=== PATIENT | male | born 1970 | race Caucasian/White ===

== ENCOUNTER → 2021-06-20 | Outpatient (CLI) | payer BC ==
[~2021-06-20] MED LIST: AMLODIPINE BESYL5 MG PO; FENOFIBRATE54 MG PO; GABAPENTIN600 MG PO; HYDROCHLOROTHIA25 MG PO; IRBESARTAN300 MG PO; MELOXICAM15 MG PO; METFORMIN HCL500 MG PO; OMEPRAZOLE40 MG PO; PREDNISONE 10 M10 MG PO; TESTOSTERO200 MG/1 M IM; TIZANIDINE HCL4 MG PO; TRIAMCINOLONE
[2021-06-20 10:49] LABS: HEMOGLOBIN 16.5 gm/dl (14.0-17.5); RED BLOOD COUNT 6.01 M/UL (4.20-5.50); WHITE BLOOD COUNT 7.9 K/UL (4.5-11.0)
[2021-06-20 11:07] LABS: BUN/CREATININE RATIO 12 (0-10)
== END ==
LOC: OPSV2 09:28
PROVIDERS: Orthopaedic Surgery
DX: Z01.812 Encounter for preprocedural laboratory examination (principal); G56.01 Carpal tunnel syndrome, right upper limb
CPT/HCPCS: 36415; 80048; 85025

== ENCOUNTER → 2021-06-30 | Day surgery (SDC) | payer BC ==
[~2021-06-30] VITALS: Ht 188 cm; Wt 127.5 kg
[~2021-06-30] MED LIST changes: +HYDROCODON-ACE1 EAC4 PO
== END | disposition home or self-care (01) ==
LOC: OR 06-23 09:15
DX: G56.01 Carpal tunnel syndrome, right upper limb (principal); I10 Essential (primary) hypertension; K21.9 Gastro-esophageal reflux disease without esophagitis; M19.90 Unspecified osteoarthritis, unspecified site; E78.5 Hyperlipidemia, unspecified; E11.42 Type 2 diabetes mellitus with diabetic polyneuropathy; F17.200 Nicotine dependence, unspecified, uncomplicated; Z79.2 Long term (current) use of antibiotics; Z79.84 Long term (current) use of oral hypoglycemic drugs; Z79.899 Other long term (current) drug therapy; Z80.1 Family history of malignant neoplasm of trachea, bronchus and lung; Z82.49 Family history of ischemic heart disease and other diseases of the circulatory system
CPT/HCPCS: 82962; J1100; J1885; J2001; J2250; J2405; J2704; J3010; J7030; J7120

== ENCOUNTER → 2021-08-09 | Outpatient (CLI) | payer BC ==
[~2021-08-09] MED LIST changes: +CETIRIZINE HCL10 MG PO; +COREG6.25 MG PO; +CYCLOBENZAPRINE10 MG PO; +MAGNESIUM PO; +VITAMIN C PO; +VITAMIN D PO; +ZINC PO
[2021-08-09 08:57] LABS: HEMOGLOBIN 15.1 gm/dl (14.0-17.5); RED BLOOD COUNT 5.83 M/UL (4.20-5.50); WHITE BLOOD COUNT 6.6 K/UL (4.5-11.0)
[2021-08-09 09:16] LABS: BUN/CREATININE RATIO 17 (0-10)
[2021-08-10 09:13] LABS: FSH 14.2 mIU/mL (1.5-12.4); LUTEINIZING HORMONE(LH) 12.9 mIU/mL (1.7-8.6); PROLACTIN 9.1 ng/mL (4.0-15.2)
== END ==
LOC: OPSV2 07:47
PROVIDERS: Anesthesiology; Physician Assistant Surgical
DX: Z01.812 Encounter for preprocedural laboratory examination (principal); R53.83 Other fatigue
CPT/HCPCS: 36415; 80048; 83001; 83002; 84146; 84402; 84403; 85025

== ENCOUNTER → 2021-08-17 | Outpatient (CLI) | payer BC ==
[2021-08-18 04:08] LABS: TESTOSTERONE, SERUM 20 ng/dL (264-916)
== END ==
LOC: LAB 09:16
PROVIDERS: Physician Assistant Surgical
DX: R53.83 Other fatigue (principal)
CPT/HCPCS: 36415; 84403

== ENCOUNTER → 2021-08-18 | Day surgery (SDC) | payer BC | END | disposition home or self-care (01) | LOC: OR 08-09 13:00 | DX: G56.02 Carpal tunnel syndrome, left upper limb (principal); K21.9 Gastro-esophageal reflux disease without esophagitis; E78.5 Hyperlipidemia, unspecified; I10 Essential (primary) hypertension; Z87.891 Personal history of nicotine dependence; Z79.84 Long term (current) use of oral hypoglycemic drugs; Z79.899 Other long term (current) drug therapy; Z20.822 Contact with and (suspected) exposure to COVID-19 | CPT/HCPCS: 82962; J1100; J2001; J2250; J2405; J2704; J3010; J7030; J7120 ==